=== PATIENT | female | born 1955 | race Caucasian/White ===

== ENCOUNTER 2022-02-03 09:10 | Emergency (ER) | payer BC, MEDICARE, SELFPAY ==
[~2022-02-03] VITALS: Ht 165.1 cm; Wt 73.0 kg
[2022-02-03 09:30] VITALS: BP 149/93
[2022-02-03] MEDS ORDERED: PREG50CA PO (10:41)
== END 2022-02-03 11:00 | disposition home or self-care (01) ==
LOC: ER 09:10
DX: M25.572 Pain in left ankle and joints of left foot (principal); G89.29 Other chronic pain; F12.10 Cannabis abuse, uncomplicated; Z79.899 Other long term (current) drug therapy
CPT/HCPCS: 73610; 99283; L1930